=== PATIENT | male | born 1985 | race American Indian/Alaskan Native ===

== ENCOUNTER 2022-11-17 00:57 | Emergency (ER) | payer OTHER ==
[2022-11-17 01:07] VITALS: BP 129/83; PULSE 77; RESP 18; TEMP 97.9
--- NOTE | 2022-11-17 01:27 | ED ---
Skin/Abscess/FB HPI - General Chief complaint: Skin/Abscess/Foreign Body Stated complaint: possible chem burn Time Seen by Provider: 11/17/22 01:20 Source: patient Mode of arrival: ambulatory Limitations: no limitations - History of Present Illness Initial comments: Patient is a 37-year-old male presenting with chief complaint of a rash to the bilateral hands. States that this has been ongoing for about a month. Patient works at [employer] and states that the symptoms started when they change the gloves they used for protection against the cleaning chemicals. He states that specifically there isn't a significant powder they used to scrub the grill top which irritates his hands when he gets into the gloves. He states he is waiting for them to obtain the proper gloves. He admits to redness and painful bumps to the bilateral hands. No numbness or tingling. States that he was popping open some of the blisters. - Related Data Previous Rx's Medication Instructions Recorded Cyclobenzaprine [Flexeril] 10 mg PO TID PRN #15 tab 02/15/22 Lidocaine 5% Patch [Lidoderm 5% 1 patch TOPICAL DAILY #7 patch 02/15/22 Patch] SILVER sulfADIAZINE CREAM 1 applic TOPICAL BID #85 gram 11/17/22 [Silvadene Cream] Allergies Allergy/AdvReac Type Severity Reaction Status Date / Time No Known Allergies Allergy Verified 11/17/22 01:07 Review of Systems ROS Statement: Those systems with pertinent positive or pertinent negative responses have been documented in the HPI. ROS Other: All systems not noted in ROS Statement are negative. Past Medical History Past Medical History: No Reported History Past Surgical History: No Surgical Hx Reported Past Psychological History: No Psychological Hx Reported Smoking Status: Current every day smoker, Vaper Past Alcohol Use History: Occasional Past Drug Use History: None Reported General Exam Limitations: no limitations General appearance: alert, in no apparent distress Head exam: Present: atraumatic, normocephalic, normal inspection Eye exam: Present: normal appearance, EOMI. Absent: scleral icterus, periorbital swelling Neck exam: Present: normal inspection, full ROM Neurological exam: Present: alert, oriented X3, CN II-XII intact Psychiatric exam: Present: normal affect, normal mood Skin exam: Present: erythema (Erythematous raised patches of skin which are quite painful) Course Vital Signs 11/17/22 01:04 Temperature 97.9 F Pulse Rate 77 Respiratory 18 Rate Blood Pressure 129/83 O2 Sat by Pulse 96 Oximetry Medical Decision Making - Medical Decision Making Was pt. sent in by a medical professional or institution (VIJAY Crystal, RETAIL SALES LEAD, urgent care, hospital, or fpc...) When possible be specific @ -No Did you speak to anyone other than the patient for history (EMS, parent, family, police, friend...)? What history was obtained from this source @ -No Did you review nursing and triage notes (agree or disagree)? Why? @ -I reviewed and agree with nursing and triage notes Were old charts reviewed (outside hosp., previous admission, EMS record, old EKG, old radiological studies, urgent care reports/EKG's, fpc records)? Report findings @ -No old charts were reviewed Differential Diagnosis (chest pain, altered mental status, abdominal pain women, abdominal pain men, vaginal bleeding, weakness, fever, dyspnea, syncope, headache, dizziness, GI bleed, back pain, seizure, CVA, palpatations, mental health, musculoskeletal)? @ -Differential includes chemical burn, ALLERGIC reaction, Velasquez Jamie syndrome, this is not an all inclusive list EKG interpreted by me (3pts min.). @ -As above X-rays interpreted by me (1pt min.). @ -None done CT interpreted by me (1pt min.). @ -None done U/S interpreted by me (1pt. min.). @ -None done What testing was considered but not performed or refused? (CT, X-rays, U/S, labs)? Why? @ -None What meds were considered but not given or refused? Why? @ -None Did you discuss the management of the patient with other professionals (professionals i.e. VIJAY Crystal, RETAIL SALES LEAD, lab, RT, psych nurse, dialysis social worker, application coordinator, teacher, soil science technical officer, catalytic case operator)? Give summary @ -No Was smoking cessation discussed for >3mins.? @ -No Was critical care preformed (if so, how long)? @ -No Were there social determinants of health that impacted care today? How? (Homelessness, low income, unemployed, alcoholism, drug addiction, transportation, low edu. Level, literacy, decrease access to med. care, nursing home, rehab)? @ -No Was there de-escalation of care discussed even if they declined (Discuss DNR or withdrawal of care, Hospice)? DNR status @ -No What co-morbidities impacted this encounter? (DM, HTN, Smoking, COPD, CAD, Cancer, CVA, ARF, Chemo, Hep., AIDS, mental health diagnosis, sleep apnea, morbid obesity)? @ -None Was patient admitted / discharged? Hospital course, mention meds given and route, prescriptions, significant lab abnormalities, going to OR and other pertinent info. @ -This is a 37-year-old male presenting with chief complaint of painful erythematous rash to the bilateral hands which she states is been ongoing for the last month due to an ascitic powder they used for cleaning at work. He states that the powders been getting is close. On physical examination there appears to be a rash to the bilateral hands. Pain with palpation. May be a first-degree chemical burn. Patient is provided Silvadene cream and instructed not to come in contact with the substance until the proper PPE is provided at work. Follow-up with PCP. Report back to ER with any new or worsening symptoms. Discussed return parameters and answered all questions. Patient conveyed verbal understanding and agreed to the plan. I discussed this case in detail with my attending Dr. Rizzo Undiagnosed new problem with uncertain prognosis? @ -No Drug Therapy requiring intensive monitoring for toxicity (Heparin, Nitro, Insulin, Cardizem)? @ -No Were any procedures done? @ -No Diagnosis/symptom? @ -ALLERGIC reaction Acute, or Chronic, or Acute on Chronic? @ -Acute Uncomplicated (without systemic symptoms) or Complicated (systemic symptoms)? @ -Uncomplicated Side effects of treatment? @ -No Exacerbation, Progression, or Severe Exacerbation? @ -No Poses a threat to life or bodily function? How? (Chest pain, USA, ID, pneumonia, PE, COPD, DKA, ARF, appy, cholecystitis, CVA, Diverticulitis, Homicidal, Suicidal, threat to staff... and all critical care pts) @ -No Disposition Clinical Impression: Allergic reaction Disposition: HOME SELF-CARE Condition: Good Instructions (If sedation given, give patient instructions): General Allergic Reaction (ED) Additional Instructions: Follow-up with PCP. Report back to ER with any new or worsening symptoms. Prescriptions: SILVER sulfADIAZINE CREAM [Silvadene Cream] 1 applic TOPICAL BID #85 gram Is patient prescribed a controlled substance at d/c from ED?: No Referrals: None,Stated [Primary Care Provider] - 1-2 days Time of Disposition: 01:27
== END 2022-11-17 01:50 | disposition home or self-care (01) ==
LOC: EC 00:57
DX: T78.40XA Allergy, unspecified, initial encounter (principal); F17.290 Nicotine dependence, other tobacco product, uncomplicated
CPT/HCPCS: 99283

== ENCOUNTER 2023-09-05 15:51 | Emergency (ER) | payer OTHER ==
[2023-09-05 16:52] VITALS: RESP 20
--- NOTE | 2023-09-05 17:39 | XR ---
EXAMINATION TYPE: XR finger RT DATE OF EXAM: 09/05/2023 5:12 PM CLINICAL INDICATION:Male, 38 years old with history of r/o osteo; [facility] COMPARISON: 08/29/2023 TECHNIQUE: XR finger RT Frontal, lateral and oblique views were obtained. FINDINGS/IMPRESSION: 1. Tuft fracture of the distal second digit with soft tissue injury. The osseous structures do not d efinitely demonstrate evidence for infection at this time. Correlate clinically. 2. Mild soft tissue swelling.
[2023-09-05] MEDS: ACETAMINOPHEN TAB 500 MG TAB PO STA (17:46)
[2023-09-05] MEDS: KETOROLAC 15 MG/ML 1 ML VIAL IVP STA (17:58)
[2023-09-05 18:04] LABS: Basophils % (A) 0 %; Eosinophils # (A) 0.1 k/uL (0-0.7); Eosinophils % (A) 1 %; HGB 16.2 gm/dL (13.0-17.5); Lymphocytes # (A) 1.8 k/uL (1.0-4.8); Lymphocytes % (A) 14 %; MCH 31.6 pg (25.0-35.0); MCV 95.6 fL (80.0-100.0); Mean Platelet Volume 7.6; Monocytes # (A) 0.5 k/uL (0-1.0); Monocytes % (A) 4 %; Neutrophils # (A) 9.9 k/uL (1.3-7.7); Neutrophils % (A) 80 %; Platelet Count 361 k/uL (150-450); RBC 5.13 m/uL (4.30-5.90); RDW 12.9 % (11.5-15.5); WBC 12.4 k/uL (3.8-10.6)
[2023-09-05 18:07] LABS: ALT 21 U/L (4-49); AST 24 U/L (17-59); African American GFR (CKD) >90 (>60 ml/min/1.73 sqM); Albumin 4.6 g/dL (3.5-5.0); Alkaline Phosphatase 79 U/L (38-126); Anion Gap 9 mmol/L; Blood Urea Nitrogen 19 mg/dL (9-20); Calcium 9.6 mg/dL (8.4-10.2); Carbon Dioxide 23 mmol/L (22-30); Chloride 107 mmol/L (98-107); Glucose 114 mg/dL (74-99); Non-African American GFR(CKD) >90 (>60 ml/min/1.73 sqM); Potassium 4.1 mmol/L (3.5-5.1); Sodium 139 mmol/L (137-145); Total Bilirubin 0.7 mg/dL (0.2-1.3); Total Protein 7.4 g/dL (6.3-8.2)
--- NOTE | 2023-09-05 18:44 | ED ---
General Adult HPI - General Chief complaint: Extremity Injury, Upper Stated complaint: Right Finger laceration Time Seen by Provider: 09/05/23 15:57 Source: patient Mode of arrival: ambulatory Limitations: no limitations - History of Present Illness Initial comments: 38-year-old male presenting to the ED with a chief complaint of right finger pain. Patient reports approximately 2 weeks ago had partial amputation of his right second finger. He is following with Dr. Her of orthopedics for this. States 2 days ago accidentally smashed his hand at work on a metal pole and has had some pain of this finger since then. Patient would like to have a work note. Denies fever or chills. No other complaints at this time. Tetanus status up-to-date. - Related Data Previous Rx's Medication Instructions Recorded Cyclobenzaprine [Flexeril] 10 mg PO TID PRN #15 tab 02/15/22 Lidocaine 5% Patch [Lidoderm 5% 1 patch TOPICAL DAILY #7 patch 02/15/22 Patch] SILVER sulfADIAZINE CREAM 1 applic TOPICAL BID #85 gram 11/17/22 [Silvadene Cream] Cephalexin [Keflex] 500 mg PO Q6HR 7 Days #28 cap 09/05/23 Allergies Allergy/AdvReac Type Severity Reaction Status Date / Time No Known Allergies Allergy Verified 11/17/22 01:07 Review of Systems ROS Statement: Those systems with pertinent positive or pertinent negative responses have been documented in the HPI. ROS Other: All systems not noted in ROS Statement are negative. Past Medical History Past Medical History: No Reported History Past Surgical History: No Surgical Hx Reported Past Psychological History: No Psychological Hx Reported Smoking Status: Current every day smoker, Vaper Past Alcohol Use History: Occasional Past Drug Use History: None Reported General Exam Limitations: no limitations General appearance: alert, in no apparent distress Eye exam: Present: normal appearance Neck exam: Present: normal inspection Respiratory exam: Present: normal lung sounds bilaterally Cardiovascular Exam: Present: regular rate, normal rhythm Extremities exam: Present: other (Patient has a partial amputation of the distal right second finger. Does appear to be healing well. There is some minimal erythema to this. No significant swelling or tenderness to palpation.) Neurological exam: Present: alert, oriented X3 Skin exam: Present: warm, dry Course Vital Signs 09/05/23 16:21 Temperature 98.3 F Pulse Rate 100 Respiratory 20 Rate Blood Pressure 126/87 O2 Sat by Pulse 97 Oximetry Medical Decision Making - Medical Decision Making Was pt. sent in by a medical professional or institution ([facility] Crystal, GAGGERMAN, urgent care, hospital, or longterm...) When possible be specific @ -No Did you speak to anyone other than the patient for history (EMS, parent, family, police, friend...)? What history was obtained from this source @ -No Did you review nursing and triage notes (agree or disagree)? Why? @ -I reviewed and agree with nursing and triage notes Were old charts reviewed (outside hosp., previous admission, EMS record, old EKG, old radiological studies, urgent care reports/EKG's, longterm records)? Report findings @ -No old charts were reviewed Differential Diagnosis (chest pain, altered mental status, abdominal pain women, abdominal pain men, vaginal bleeding, weakness, fever, dyspnea, syncope, headache, dizziness, GI bleed, back pain, seizure, CVA, palpatations, mental health, musculoskeletal)? @ -Differential Musculoskeletal Muscular strain, contusion, ligament sprain, fracture, arthritis, septic arthritis, bursitis, cellulitis, muscle spasm, nerve compression, DVT, arterial occlusion, herpes zoster, electrolyte abnormality, tumor.... This is not meant to be in all inclusive list EKG interpreted by me (3pts min.). @ -None X-rays interpreted by me (1pt min.). @ -X-ray interpreted by me which does show tuft fracture of the second finger with some soft tissue swelling. No definite evidence of osteomyelitis at this time. CT interpreted by me (1pt min.). @ -None done U/S interpreted by me (1pt. min.). @ -None done What testing was considered but not performed or refused? (CT, X-rays, U/S, labs)? Why? @ -None What meds were considered but not given or refused? Why? @ -None Did you discuss the management of the patient with other professionals (professionals i.e. VIJAY Crystal, GAGGERMAN, lab, RT, psych nurse, social security benefits interviewer, collection clerk, teacher, bank secrecy act officer, case operator)? Give summary @ -No Was smoking cessation discussed for >3mins.? @ -No Was critical care preformed (if so, how long)? @ -No Were there social determinants of health that impacted care today? How? (Homelessness, low income, unemployed, alcoholism, drug addiction, transportation, low edu. Level, literacy, decrease access to med. care, fci, rehab)? @ -No Was there de-escalation of care discussed even if they declined (Discuss DNR or withdrawal of care, Hospice)? DNR status @ -No What co-morbidities impacted this encounter? (DM, HTN, Smoking, COPD, CAD, Cancer, CVA, ARF, Chemo, Hep., AIDS, mental health diagnosis, sleep apnea, morbid obesity)? @ -None Was patient admitted / discharged? Hospital course, mention meds given and route, prescriptions, significant lab abnormalities, going to OR and other pertinent info. @ -Discharge 38-year-old male presented to the ED with complaints of finger injury. Patient reports approximately 2 weeks ago had partial amputation of his right second finger. Is following with Dr. Her of orthopedics. States that he hit his finger on the metal pole at work few days ago and reports that he would like to have a work note. On examination there was some minimal erythema to this, not circumferential. Therefore, x-ray was performed. No definitive evidence of osteomyelitis at this time. There was some minimal tenderness to palpation on examination. Laboratory studies do show minimally elevated white blood cell count at 12.4. Otherwise laboratory studies unremarkable. Provided starter p ack for Keflex and prescription for Keflex as well. At this time vital signs stable afebrile. Advise follow-up with orthopedics as scheduled. Discussed strict return precautions with patient who verbalized agreement. Undiagnosed new problem with uncertain prognosis? @ -No Drug Therapy requiring intensive monitoring for toxicity (Heparin, Nitro, Insulin, Cardizem)? @ -No Were any procedures done? @ -No Diagnosis/symptom? @ -Finger injury, requested medical documentation Acute, or Chronic, or Acute on Chronic? @ -Acute Uncomplicated (without systemic symptoms) or Complicated (systemic symptoms)? @ -Uncomplicated Side effects of treatment? @ -No Exacerbation, Progression, or Severe Exacerbation? @ -No Poses a threat to life or bodily function? How? (Chest pain, USA, [place], pneumonia, PE, COPD, DKA, ARF, appy, cholecystitis, CVA, Diverticulitis, Homicidal, Suicidal, threat to staff... and all critical care pts) @ -No - Lab Data Result diagrams: 09/05/23 17:13 09/05/23 17:13 Lab Results 09/05/23 09/05/23 Range/Units 17:13 17:13 WBC 12.4 H (3.8-10.6) k/uL RBC 5.13 (4.30-5.90) m/uL Hgb 16.2 (13.0-17.5) gm/dL Hct 49.0 (39.0-53.0) % MCV 95.6 (80.0-100.0) fL MCH 31.6 (25.0-35.0) pg MCHC 33.0 (31.0-37.0) g/dL RDW 12.9 (11.5-15.5) % Plt Count 361 (150-450) k/uL MPV 7.6 Neutrophils % 80 % Lymphocytes % 14 % Monocytes % 4 % Eosinophils % 1 % Basophils % 0 % Neutrophils # 9.9 H (1.3-7.7) k/uL Lymphocytes # 1.8 (1.0-4.8) k/uL Monocytes # 0.5 (0-1.0) k/uL Eosinophils # 0.1 (0-0.7) k/uL Basophils # 0.0 (0-0.2) k/uL Sodium 139 (137-145) mmol/L Potassium 4.1 (3.5-5.1) mmol/L Chloride 107 (98-107) mmol/L Carbon Dioxide 23 (22-30) mmol/L Anion Gap 9 mmol/L BUN 19 (9-20) mg/dL Creatinine 0.92 (0.66-1.25) mg/dL Est GFR (CKD-EPI)AfAm >90 (>60 ml/min/1.73 sqM) Est GFR (CKD-EPI)NonAf >90 (>60 ml/min/1.73 sqM) Glucose 114 H (74-99) mg/dL Calcium 9.6 (8.4-10.2) mg/dL Total Bilirubin 0.7 (0.2-1.3) mg/dL AST 24 (17-59) U/L ALT 21 (4-49) U/L Alkaline Phosphatase 79 (38-126) U/L Total Protein 7.4 (6.3-8.2) g/dL Albumin 4.6 (3.5-5.0) g/dL Disposition Clinical Impression: Finger injury, Encounter for issue of other medical certificate Disposition: HOME SELF-CARE Condition: Good Additional Instructions: Please return to the Emergency Department if symptoms worsen or any other concerns. Follow-up with orthopedics as scheduled. Prescriptions: Cephalexin [Keflex] 500 mg PO Q6HR 7 Days #28 cap Is patient prescribed a controlled substance at d/c from ED?: No Referrals: None,Stated [Primary Care Provider] - 1-2 days Time of Disposition: 18:53
[2023-09-05] MEDS: CEPHALEXIN 500MG STARTER PACK 4 CAP BTL PO STA (19:08)
[2023-09-05 19:27] VITALS: BP 135/90; PULSE 95; TEMP 97.8
== END 2023-09-05 19:16 | disposition home or self-care (01) ==
LOC: EC 15:51
DX: Z02.79 Encounter for issue of other medical certificate (principal); S68.120A Partial traumatic metacarpophalangeal amputation of right index finger, initial encounter; F17.290 Nicotine dependence, other tobacco product, uncomplicated; W23.0XXA Caught, crushed, jammed, or pinched between moving objects, initial encounter
CPT/HCPCS: 36415; 80053; 85025; 73140; 99284; 96374; J1885